=== PATIENT | female | born 1975 | race Caucasian/White ===

== ENCOUNTER 2019-12-16 23:55 | Emergency (ER) | payer BC, SELFPAY ==
--- NOTE | ~2019-12-16 | XR_ITS ---
EXAMINATION: XR chest 2V DATE: 12/17/2019 00:57 INDICATION: Chest pressure. Shortness of breath. TECHNIQUE: Frontal and lateral views of the chest were obtained. COMPARISON: Chest 2 views 04/30/2013 FINDINGS: The chest demonstrates clear lungs without pneumonia, pleural effusion, or pneumothorax. Th e heart size is normal. IMPRESSION: 1. No acute cardiopulmonary disease. Reviewed, dictated and finalized at location A.
--- NOTE | 2019-12-17 | ECG_ITS ---
Measurements Intervals [place] Rate: 88 P: 56 WI: 149 QRS: 30 QRSD: 89 T: 45 QT: 371 QTc: 450 Interpretive Statements SINUS RHYTHM BORDERLINE T WAVE ABNORMALITY- ANTERIOR LEADS BASELINE ARTIFACT- I, II BORDERLINE ECG Electronically Signed On 12-17-2019 7:23:06 CDT by Thomas Tran D.O.
[2019-12-17 00:05] VITALS: BP 153/101; PULSE 89; RESP 20; TEMP 36.6; O2SAT 100
[2019-12-17 00:25] LABS: Basophils Absolute Auto 0.1 K/mm3 (0.0-0.1); Basophils Percent Auto 0.5 % (0.2-1.2); Eosinophils Absolute Auto 0.1 K/mm3 (0-0.3); Eosinophils Percent Auto 0.8 % (0-4.4); Hematocrit 38.1 % (37.0-47.0); Hemoglobin 12.5 g/dL (12.0-15.0); Immature Granulocyte Absolute 0.03 K/mm3 (0.00-0.031); Immature Granulocyte Percent A 0.3 % (0-0.5); Lymphocytes Absolute Auto 3.84 K/mm3 (0.9-3.2); Lymphocytes Percent Auto 39.6 % (18.3-44.2); Mean Corpuscular HGB Conc 32.8 g/dl (32-36); Mean Corpuscular Volume 88.4 fl (80-100); Mean Platelet Volume 9.9 fl (7.4-10.4); Monocytes Absolute Auto 0.6 K/mm3 (0.1-0.6); Monocytes Percent Auto 6.6 % (2.6-8.5); Neutrophils Absolute Auto 5.1 K/mm3 (1.3-6.7); Neutrophils Percent Auto 52.2 % (45.5-73.1); Platelet Count Result 374 k/mm3 (150-375); Red Blood Count 4.31 M/mm3 (4.2-5.4); Red Cell Distribution Width 13.5 % (11.5-14.5); White Blood Count 9.7 K/mm3 (4.5-10.0)
[2019-12-17 00:31] LABS: INR 0.9; Prothrombin Time 11.7 Seconds (11.1-14.7)
[2019-12-17 00:32] LABS: Partial Thromboplastin Time 28.2 SECONDS (22.3-36.8)
[2019-12-17 00:34] LABS: Blood Urea Nitrogen 13 mg/dL (7-17); Calcium 8.8 mg/dL (8.4-10.2); Carbon Dioxide 27 mmol/L (22-30); Chloride 105 mmol/L (98-107); Estimated Glomerular Filt Rate > 60; Glucose 100 mg/dL (65-105); Potassium 3.7 mmol/L (3.4-5.0); Sodium 138 mmol/L (137-145)
[2019-12-17 00:46] LABS: Troponin I < 0.012 ng/mL (0.000-0.034)
[2019-12-17 02:12] VITALS: BP 166/104; PULSE 67; RESP 13; TEMP 36.6; O2SAT 100
--- NOTE | 2019-12-17 03:19 | ED.ARRPALP ---
HPI - Arrhythmia/Palpitations General Chief Complaint: Arrhythmia/Palpitations Stated Complaint: cp, sob Time Seen by Provider: 12/17/19 03:09 Source: patient Mode of arrival: ambulatory Limitations: no limitations History of Present Illness HPI narrative: This patient is a 44 year old female who presents for evaluation palpitations. She states she woke up around 11 pm with heart racing, shortness of breath and chest pressure. She states she checked her blood pressure at home it was elevated 150/115. She does not know what her heart rate was but she took her father's metoprolol 100 mg. Her symptoms are better now. She states her palpitations have resolved and she has mild chest tightness. She denies having exertional chest pain or shortness of breath before tonight. She is under a lot of stress due to losing her house. complaint: palpitations Related Data Allergies Allergy/AdvReac Type Severity Reaction Status Date / Time SHELLFISH Allergy Unknown Uncoded 01/02/16 16:45 Review of Systems Review of Systems: All systems reviewed & are unremarkable except as noted in HPI and below Constitutional: Constitutional: Denies chills and Denies fever(s) ENT: Reports nasal congestion and Reports nasal discharge Cardiovascular: Cardiovascular: Reports chest pain and Reports rapid heart rate Respiratory: Respiratory: Denies cough, Reports dyspnea and Denies wheezing Gastrointestinal: Gastrointestinal: Denies abdominal pain, Denies diarrhea, Denies nausea and Denies vomiting Musculoskeletal: Musculoskeletal: Denies back pain PMFSH Past Medical History Medical History (Updated 12/17/19 @ 04:29 by Kera Carmona MD) Patient denies medical problems Surgical History Surgical History (Updated 12/17/19 @ 03:20 by Kera Carmona MD) H/O tubal ligation Family History Family History (Updated 12/17/19 @ 03:21 by Kera Carmona MD) Father Hypertension Social History Social History (Updated 12/17/19 @ 03:21 by Kera Carmona MD) Smoking status: Never smoker Alcohol intake: never Substance use: never Exam Narrative: Exam Narrative: GENERAL: Well-appearing, well-nourished, and in no acute distress. HEAD: Normocephalic, atraumatic EYES: PERRLA and EOMI, conjunctiva clear without discharge EARS: TM's clear bilaterally without erythema or dullness NOSE: Nares clear, no rhinorrhea or epistaxis THROAT:Mucous membranes moist, Oropharynx normal without erythema, exudate, peritonsillar swelling or fluctuance NECK: Supple, without lymphadenopathy or mass RESPIRATORY: No respiratory distress, Airway patent, Respirations non-labored, Clear to auscultation without rales, rhonchi or wheeze HEART: Regular rate and rhythm. No murmur heard. Normal peripheral pulses. ABDOMEN: Soft, nontender, nondistended, normal active bowel sounds. No masses. No rebound or guarding, No organomegaly. EXTREMITIES: No edema, normal strength with full range of motion. SKIN: Warm, dry, normal color without rash NEURO: Alert and oriented x3. CN 2-12 grossly intact. No focal deficits. PSYCH: Normal mood and affect. Course Reevaluation(s) Reevaluation #1: PAtient states she feels better. Her heart rate is 69 . She is hypertensive but on review of records she appears to be chronically elevated. She will follow up with her primary care physician Date: 12/17/19 Time: 04:26 Vital Signs Vital signs: Vital Signs Temperature 97.8 F 12/17/19 00:05 Pulse Rate 89 12/17/19 00:05 Respiratory Rate 20 12/17/19 00:05 Blood Pressure 153/101 H 12/17/19 00:05 Pulse Oximetry 100 12/17/19 00:05 Temperature 97.5 F L 12/17/19 04:36 Pulse Rate 76 12/17/19 04:36 Respiratory Rate 18 12/17/19 04:36 Blood Pressure 162/98 H 12/17/19 04:36 Pulse Oximetry 99 12/17/19 04:36 MDM - Arrhythmia/Palpitations Differential Diagnosis Differential diagnosis: Likely palpitations, anxiety, sinus tachycardia an
[2019-12-17 03:26] LABS: Troponin I < 0.012 ng/mL (0.000-0.034)
--- NOTE | 2019-12-17 03:48 | PC.NURSE ---
Per ANA Carmona, no Aspirin dose needed.
[2019-12-17 03:49] LABS: Magnesium 2.3 mg/dL (1.6-2.3)
[2019-12-17 03:50] VITALS: BP 158/97; PULSE 71; RESP 12; O2SAT 100
[2019-12-17 03:52] LABS: D Dimer 0.27 ug/mL (<0.48)
[2019-12-17 04:36] VITALS: BP 162/98; PULSE 76; RESP 18; TEMP 36.4; O2SAT 99
== END 2019-12-17 04:38 | disposition home or self-care (01) ==
PROVIDERS: Emergency Provider General Practice; PCP Physician Assistant
DX: R00.2 Palpitations (principal); R03.0 Elevated blood-pressure reading, without diagnosis of hypertension; R94.31 Abnormal electrocardiogram [ECG] [EKG]
CPT/HCPCS: 36415; 71046; 80048; 83735; 84484; 85025; 85380; 85610; 85730; 93005; 99284

== ENCOUNTER → 2020-08-12 15:35 | Outpatient (CLI) | payer BC, SELFPAY ==
--- NOTE | ~2020-08-12 | MM_ITS ---
EXAMINATION: MM screening ida BI w jigna HISTORY: Screening mammogram TECHNIQUE: Craniocaudal and mediolateral oblique 3-D tomosynthesis images were obtained and synthetic 2-D images were generated. Bilateral rotated lateral cc views. ..CAD analysis was submitted and inte rpreted. COMPARISON: 01/18/2017 bilateral digital screening mammogram BREAST PARENCHYMAL COMPOSITION: The breasts are heterogeneously dense, which may obscure small masses . FINDINGS: Stable mild fibroglandular asymmetry. There is no evidence of suspicious mass, calcificatio n, or architectural distortion to suggest malignancy in either breast. There has been no suspicious i nterval change. IMPRESSION: 1. No mammographic evidence of malignancy. 2. Recommend routine screening mammography in one year. BI-RADS Category 1: Negative Reviewed, dictated and finalized at location A. ED WIRE MACHINE OPERATOR
== END ==
PROVIDERS: Visit Provider Nurse Practitioner
DX: Z12.31 Encounter for screening mammogram for malignant neoplasm of breast (principal)
CPT/HCPCS: 77063; 77067

== ENCOUNTER → 2021-11-04 15:45 | Outpatient (CLI) | payer BC, SELFPAY ==
--- NOTE | ~2021-11-04 | MM_ITS ---
EXAMINATION: MM screening ida BI w jigna HISTORY: Screening TECHNIQUE: Craniocaudal and mediolateral oblique 3-D tomosynthesis images were obtained and synthetic 2-D images were generated. CAD analysis was submitted and interpreted. COMPARISON: Comparison to multiple prior studies sequentially, with oldest reviewed study dated 12/2016. BREAST PARENCHYMAL COMPOSITION: The breasts are heterogenously dense, which may obscure small masses FINDINGS: There is no evidence of suspicious mass, calcification, or architectural distortion to sugg est malignancy in either breast. There has been no suspicious interval change. IMPRESSION: 1. No mammographic evidence of malignancy. 2. Recommend routine screening mammography in one year. BI-RADS Category 1: Negative Reviewed, dictated and finalized at location A.
--- NOTE | ~2021-11-04 | US_ITS ---
EXAMINATION: US pelvic complete DATE: 11/04/2021 16:12 INDICATION: Menorrhagia TECHNIQUE: Multiple transabdominal sonographic images of the pelvis were obtained. COMPARISON: None. FINDINGS: The uterus measures 9.9 x 4.6 x 4.8 cm. The endometrial complex measures 13 mm. The right o vary measures 3.4 x 2.1 x 2.3 cm. The left ovary measures 2 x 1.6 x 2 cm. There is normal vascular fl ow in the ovaries. There is no free fluid in the pelvis. IMPRESSION: 1. No sonographic correlate for the patient's symptoms. Reviewed, dictated and finalized at location F.
== END ==
PROVIDERS: PCP Physician Assistant; Visit Provider Nurse Practitioner
DX: Z12.31 Encounter for screening mammogram for malignant neoplasm of breast (principal); N92.0 Excessive and frequent menstruation with regular cycle
CPT/HCPCS: 76856; 77063; 77067

== ENCOUNTER → 2022-12-15 15:25 | Outpatient (CLI) | payer BC, SELFPAY ==
--- NOTE | ~2022-12-15 | MM_ITS ---
EXAMINATION: MM screening ida BI w jigna HISTORY: Screening mammogram TECHNIQUE: Craniocaudal and mediolateral oblique 3-D tomosynthesis images were obtained and synthetic 2-D images were generated. CAD analysis was submitted and interpreted. COMPARISON: November 04, 2021, August 04, 2020 bilateral screening mammogram examinations BREAST PARENCHYMAL COMPOSITION: There are scattered areas of fibroglandular density. FINDINGS: There is no evidence of suspicious mass, calcification, or architectural distortion to sugg est malignancy in either breast. There has been no suspicious interval change. IMPRESSION: 1. No mammographic evidence of malignancy. 2. Recommend routine screening mammography in one year. BI-RADS Category 1: Negative Reviewed, dictated and finalized at location A.
== END ==
PROVIDERS: PCP Family Medicine; Visit Provider Nurse Practitioner
DX: Z12.31 Encounter for screening mammogram for malignant neoplasm of breast (principal)
CPT/HCPCS: 77063; 77067

== ENCOUNTER 2023-02-23 12:57 | Outpatient (CLI) | payer BC, SELFPAY ==
--- NOTE | ~2023-02-23 | US_ITS ---
EXAMINATION: US venous doppler [facility] DATE: 02/23/2023 13:24 INDICATION: Left lower limb swelling. Other specified soft tissue disorders. TECHNIQUE: Grayscale ultrasound images without and with compression and Doppler ultrasound images of the left lower extremity veins were obtained. COMPARISON: None. FINDINGS: The visualized portions of left common femoral vein, profunda (deep) femoral vein, femoral vein, popl iteal vein, peroneal veins, posterior tibial veins, and greater saphenous vein outflow are patent. IMPRESSION: 1. No deep venous thrombosis. Reviewed, dictated and finalized at location A.
== END 2023-02-23 12:58 | disposition home or self-care (01) ==
PROVIDERS: PCP Family Medicine; Visit Provider Family Medicine
DX: M79.89 Other specified soft tissue disorders (principal)
CPT/HCPCS: 93971

== ENCOUNTER 2023-03-16 00:59 | Day surgery (SDC) | payer BC, SELFPAY ==
[2023-03-02 13:25] VITALS: BMI 24.7
[2023-03-16 09:35] LABS: Glucose Point of Care 79 mg/dl (65-105)
[2023-03-16 09:39] VITALS: BP 152/99; PULSE 78; O2SAT 98
[2023-03-16] MEDS: DEXTROSE 50% 25 GM/50 ML SYRINGE IV PUSH (09:40)
[2023-03-16 09:46] VITALS: BP 116/73; PULSE 79; RESP 20; TEMP 36.2; O2SAT 100
[2023-03-16] MEDS: LACTATED RINGERS 1,000 ML 150 ML IV CONT (09:49)
[2023-03-16 09:55] LABS: Glucose Point of Care 110 mg/dl (65-105)
--- NOTE | 2023-03-16 10:30 | PM.HPGS ---
History of Present Illness History of Present Illness Consent: Risks, benefits, and alternatives have been discussed and questions answered. Patient agrees to proceed with procedure. Chief complaint: neoplasm screening Narrative: Maria Alejandra Coleman is a 47 year old female here for first screening colonoscopy Review of Systems Constitutional: Constitutional: Denies headache(s) and Denies weakness Eyes: Eyes: Denies blurry vision ENT: Reports Normal hearing present, Denies headache(s) and Denies neck pain Cardiovascular: Cardiovascular: Denies chest pain and Denies dyspnea Respiratory: Respiratory: Denies dyspnea Gastrointestinal: Gastrointestinal: Reports no additional gastrointestinal complaints Genitourinary: Genitourinary: Denies dysuria Musculoskeletal: Musculoskeletal: Denies neck pain Integumentary/Breasts: Skin/Breast: Denies dry skin Neurologic: Reports Normal hearing present, Denies headache(s) and Denies weakness Psychiatric: Psychiatric: Denies anxiety Endocrine: Endocrine: Denies change in body appearance Hematologic/Lymphatic: Hematologic/Lymphatic: Denies easy bleeding Allergic/Immunologic: Allergic/Immunologic: Denies urticaria PMFSH Past Medical History Medical History (Updated 02/12/23 @ 17:15 by Oxana Jacome MD) Acute guttate psoriasis Chronic fatigue Patient denies medical problems Surgical History Surgical History H/O tubal ligation Status post bilateral LASIK surgery Family History Family History Father Hypertension Social History Social History (Updated 02/09/23 @ 13:19 by Amanda Romero) Social History: Smoking status: Never smoker Second hand tobacco smoke exposure: No Alcohol intake: current Alcohol use details: Socially Substance use: never Substance use type: does not use Lack of Transportation: No Lack of Food: Never True Current Housing: I Have Housing Concerned About Future Housing: No Difficulty Paying Gas/Electric Bills: No Difficulty Paying for Meds: No Currently Unemployed: No Education: Decline to Answer Difficulty w/ Childcare or Family Care: No Living arrangements: other Additional living arrangements comments: With sp Occupation/Education: occupation Gender identity (if verbalized by the patient): Female Sexual Orientation (if Verbalized by the Patient): Straight or Heterosexual Meds Home Medications and Allergies Home Medications Medication Instructions Recorded Confirmed Type cetirizine 10 mg tablet (Zyrtec) 10 mg PO DAILY 01/20/22 03/02/23 History montelukast 10 mg tablet See Rx Instructions .Route 10/23/22 03/02/23 Rx .COMPLEX #90 tabs furosemide 20 mg tablet See Rx Instructions .Route 02/09/23 03/02/23 Rx .COMPLEX #90 tabs losartan 50 mg tablet See Rx Instructions .Route 02/09/23 03/02/23 Rx .COMPLEX #90 tabs clobetasol 0.05 % topical cream 1 applic topical DAILY PRN Itching 03/02/23 03/02/23 History Allergies Allergy/AdvReac Type Severity Reaction Status Date / Time SHELLFISH Allergy Intermediate hives Uncoded 03/16/23 09:45 dust mites Allergy Mild Sneezing Uncoded 03/16/23 09:45 mold Allergy Mild Sneezing Uncoded 03/16/23 09:45 Vital Signs Vital Signs - 24 hr 03/16/23 09:46 03/16/23 09:39 Temperature 97.2 F L Pulse Rate 79 78 Respiratory Rate 20 Blood Pressure 116/73 152/99 H Pulse Oximetry 100 98 Oxygen Delivery Room Air Room Air Exam Const: General: comfortable and no acute distress HENMT: Face/Nose/Sinus: Normal nares present Eyes: General: appearance normal, both eyes and all related structures Neck: Neck: no JVD Resp: Auscultation: clear to auscultation bilaterally Cardio: Rate: regular rate Rhythm: regular rhythm GI: Inspection: non-distended GI Palp: Yes Soft to palpation Skin: General skin exam: normal color
[2023-03-16 11:00] VITALS: BP 114/87; PULSE 87; RESP 22; O2SAT 100
[2023-03-16 11:10] VITALS: BP 124/77; PULSE 95; RESP 20; O2SAT 100
[2023-03-16 11:20] VITALS: BP 125/75; PULSE 89; RESP 18; O2SAT 100
--- NOTE | 2023-03-16 12:29 | SUR.PREOP ---
Patient in waiting room reports feeling light headed but okay to go . Appearance unremarkable. She was agreeable to use a wheelchair for transport to preop room. Upon return with the wheelchair the patient was pale, diaphoretic and unresponsive. Rapid response was activated and emergency response protocol initiated. During this time patient started to become responsive, A&O x3 and able to transfer to stretcher for transport to preop room 4 for monitoring and further intervention. Per verbal order from doctor Briones, IV access obtained and IV fluids started for rehydration, blood glucose level 78 and was given 12.5 gm Dextros 50% IV push. Vital signs stable, blood glucose recheck 110 prior to procedure. Patient A&O x3 denies pain, dizziness and shortness of breath. Able to complete preop for patient procedure without difficulty, call light in reach, stretcher in low locked position, side rail up x1, will continue to monitor until RN hand off.
== END 2023-03-16 11:29 | disposition home or self-care (01) ==
PROVIDERS: PCP Family Medicine; Visit Provider Internal Medicine Gastroenterology
PROC: 0DJD8ZZ Inspection of Lower Intestinal Tract, Via Natural or Artificial Opening Endoscopic (ICD-10-PCS; CPT 45378; principal; 2023-03-16 10:30)
DX: Z12.11 Encounter for screening for malignant neoplasm of colon (principal); K57.30 Diverticulosis of large intestine without perforation or abscess without bleeding; K64.8 Other hemorrhoids; L40.4 Guttate psoriasis; Z79.899 Other long term (current) drug therapy
CPT/HCPCS: 45378; 82948; J2704; J7120

== ENCOUNTER 2025-07-03 15:24 | Outpatient (CLI) | payer BC, SELFPAY ==
--- NOTE | ~2025-07-03 | MM_ITS ---
EXAMINATION: MM screening ida BI w jigna HISTORY: Screening TECHNIQUE: Craniocaudal and mediolateral oblique 3-D tomosynthesis images were obtained and synthetic 2-D images were generated. CAD analysis was submitted and interpreted. COMPARISON: Comparison to multiple prior studies sequentially, with oldest reviewed study dated , 01/18/2017 BREAST PARENCHYMAL COMPOSITION: Not Dense: There are scattered areas of fibroglandular density. FINDINGS: There is no evidence of suspicious mass, calcification, or architectural distortion to suggest malignancy in either breast. IMPRESSION: 1. No mammographic evidence of malignancy. 2. Recommend routine screening mammography in one year. BI-RADS Category 1: Negative Reviewed, dictated and finalized at location A. AL KILLER
== END 2025-07-03 15:25 | disposition home or self-care (01) ==
LOC: MICIMG 15:24
PROVIDERS: PCP Family Medicine; Visit Provider Nurse Practitioner
DX: Z12.31 Encounter for screening mammogram for malignant neoplasm of breast (principal)
CPT/HCPCS: 77063; 77067